=== PATIENT | female | born 2000 | race Caucasian/White ===

== ENCOUNTER 2022-12-12 14:07 | Outpatient (OUT) | payer OTHER, SELFPAY ==
[2022-12-12 14:18] LABS: Basophils Percent Auto 0.4 % (0.2-2.0); Eosinophils Absolute Auto 0.1 10^3/uL (0.0-0.7); Eosinophils Percent Auto 1.3 % (0.9-7.0); Hematocrit 39.5 % (36.0-48.0); Hemoglobin 12.1 g/dL (12.0-16.0); Immature Granulocytes Abs Auto 0.04 10^3/uL (0.00-0.03); Immature Granulocytes Pct Auto 0.4 % (0.0-0.5); Lymphocytes Absolute Auto 1.8 10^3/uL (1.2-3.8); Lymphocytes Percent Auto 19.6 % (20.5-60.0); Mean Corpuscular HGB Conc 30.6 g/dL (29.9-35.2); Mean Corpuscular Hemoglobin 22.9 pg (26.7-34.0); Mean Corpuscular Volume 74.8 fL (81.0-99.0); Mean Platelet Volume 11.6 fL (9.5-13.5); Monocytes Absolute Auto 0.6 10^3/uL (0.3-0.8); Monocytes Percent Auto 6.7 % (1.7-12.0); Neutrophils Absolute Auto 6.7 10^3/uL (1.4-6.5); Neutrophils Percent Auto 71.6 % (43.0-75.0); Platelet Count 344 10^3/uL (150-450); Red Blood Count 5.28 10^6/uL (4.20-5.40); Red Cell Distribution Width 17.5 % (11.0-15.0); White Blood Count 9.4 10^3/uL (4.0-11.0)
[2022-12-12 14:28] LABS: Estimated Average Glucose 111 mg/dL; Glycohemoglobin A1C 5.5 % (4.5-6.2)
[2022-12-12 14:47] LABS: Alanine Aminotransferase 29 U/L (14-59); Albumin Globulin Ratio 0.7; Albumin Level 3.3 g/dL (3.4-5.0); Alkaline Phosphatase 82 U/L (46-116); Anion Gap 12.9; Aspartate Amino Transferase 21 U/L (15-37); BUN Creatinine Ratio 13.6; Bilirubin Total 0.3 mg/dL (0.2-1.0); Calcium 9.2 mg/dL (8.5-10.1); Carbon Dioxide 27.5 mmol/L (21.0-32.0); Chloride 103 mmol/L (98-107); Chol HDL Ratio 4.5; Cholesterol 190 mg/dL (<=200); Estimated GFR (African America >60 (>=60); Estimated GFR (Non-African Ame >60 (>=60); Globulin 4.7 g/dL; Glucose 82 mg/dL (74-106); HDL Cholesterol 42 mg/dL (40-60); Potassium 4.4 mmol/L (3.5-5.1); Sodium 139 mmol/L (136-145); Thyroid Stimulating Hormone 1.452 uIU/mL (0.358-3.740); Triglycerides 198 mg/dL (<=150); VLDL CHOLESTEROL 39.6 mg/dL
== END 2022-12-12 14:08 | disposition home or self-care (01) ==
LOC: LAB 14:07
PROVIDERS: PCP Internal Medicine; Visit Provider Internal Medicine
DX: F31.9 Bipolar disorder, unspecified (principal); F41.1 Generalized anxiety disorder; F90.9 Attention-deficit hyperactivity disorder, unspecified type; Z13.1 Encounter for screening for diabetes mellitus; Z13.220 Encounter for screening for lipoid disorders
CPT/HCPCS: 36415; 80053; 80061; 83036; 84443; 85025

== ENCOUNTER 2023-01-08 19:47 | Outpatient (OUT) | payer OTHER, SELFPAY | END 2023-01-08 19:48 | disposition home or self-care (01) | LOC: SLEEP 19:47 | PROVIDERS: PCP Internal Medicine; Visit Provider Internal Medicine | DX: G47.33 Obstructive sleep apnea (adult) (pediatric) (principal) | CPT/HCPCS: 95810 ==

== ENCOUNTER 2023-02-12 19:59 | Outpatient (OUT) | payer OTHER, SELFPAY | END 2023-02-12 20:00 | disposition home or self-care (01) | LOC: SLEEP 19:59 | PROVIDERS: PCP Internal Medicine; Visit Provider Internal Medicine | DX: G47.33 Obstructive sleep apnea (adult) (pediatric) (principal) | CPT/HCPCS: 95811 ==

== ENCOUNTER 2023-02-19 18:11 | Emergency (ER) | payer OTHER, SELFPAY ==
[2023-02-19 18:15] VITALS: BP 124/91; PULSE 97; RESP 18; TEMP 36.5; O2SAT 99; BMI 42.5
--- NOTE | 2023-02-19 18:35 | ECG_ITS ---
[facility] Test Date: 2023-02-19 Pat Name: ISABELA ZHENG Department: Room: - Gender: Female [employer]: : 2000 Requested By: SHAIKH NITO Order Number: [id number] Reading MD: BRENT TERRELL Measurements Intervals [place] Rate: 112 P: 50 MI: 162 QRS: 61 QRSD: 76 T: 47 QT: 314 QTc: 380 Interpretive Statements 1120 Sinus tachycardia 9140 abnormal rhythm ECG No previous ECG available for comparison Electronically Signed On 02-20-2023 7:08:06 EST by BRENT TERRELL
--- NOTE | 2023-02-19 18:40 | XR_ITS ---
[facility] [place] [id number] Patient Name: ISABELA ZHENG MRN: [id number] date: 2000 Sex: F Assigned Patient Location: ED.MAIN Current Patient Location: ER Accession/Order Number: [id number] Exam Date: 02/19/2023 19:02 Report Date: 02/19/2023 19:47 At the request of: МАРИНА MOURA Procedure: XR chest 1V EXAM: XR chest 1V at 1903 hours HISTORY: Chest pain COMPARISON: 12/17/2019 TECHNIQUE: AP upright portable chest x-ray FINDINGS: The heart is not enlarged and the vasculature is not distended. No acute infiltrate, effusion or pneumothorax is identified. The osseous structures are grossly intact XR/XR chest 1V IMPRESSION: No acute infiltrate or evidence of cardiac decompensation. Given the differences in technique and projection, the overall appearance of the chest is essentially unchanged. Electronically authenticated by: GRISELDA LINDA Date: 02/19/2023 19:47
--- NOTE | 2023-02-19 18:40 | CT_ITS ---
[address] [address] Patient Name: ISABELA ZHENG MRN: [id number] date: 2000 Sex: F Assigned Patient Location: ER Current Patient Location: Accession/Order Number: [id number] Exam Date: 02/19/2023 19:02 Report Date: 02/19/2023 20:22 At the request of: МАРИНА MOURA Procedure: CT angio head EXAM: CT angio head, CT angio neck HISTORY: Dizziness and paresthesia. COMPARISON: Head CT on 02/19/2023 . TECHNIQUE: Following IV administration of iodinated contrast, axial CT scans of the head and neck were obtained. MPR and MIP images images were obtained. Carotid stenosis is based on NASCET criteria. Dose reduction techniques were achieved by using automated exposure control and/or adjustment of mA and/or kV according to patient size and/or use of iterative reconstruction technique. FINDINGS: CTA OF THE HEAD: No major branch occlusion or significant intracranial stenosis. No aneurysm. Dural venous sinuses are patent. CTA OF THE NECK: No abnormal soft tissue mass in the neck. The visualized lungs are clear. Osseous structures are intact. Aortic arch shows no aneurysm. The great vessels of the aortic arch show no significant stenosis. Vertebral arteries show no significant stenosis or dissection. Common carotids and internal carotids show no significant stenosis or dissection. CT/CT angio head IMPRESSION: Normal CTA of the head and neck. Patent dural venous sinuses. Electronically authenticated by: BAUDILIO AUGUSTINE Date: 02/19/2023 20:22
--- NOTE | 2023-02-19 18:40 | CT_ITS ---
[address] [address] Patient Name: ISABELA ZHENG MRN: [id number] date: 2000 Sex: F Assigned Patient Location: ER Current Patient Location: Accession/Order Number: [id number] Exam Date: 02/19/2023 19:02 Report Date: 02/19/2023 20:22 At the request of: МАРИНА MOURA Procedure: CT angio neck EXAM: CT angio head, CT angio neck HISTORY: Dizziness and paresthesia. COMPARISON: Head CT on 02/19/2023 . TECHNIQUE: Following IV administration of iodinated contrast, axial CT scans of the head and neck were obtained. MPR and MIP images images were obtained. Carotid stenosis is based on NASCET criteria. Dose reduction techniques were achieved by using automated exposure control and/or adjustment of mA and/or kV according to patient size and/or use of iterative reconstruction technique. FINDINGS: CTA OF THE HEAD: No major branch occlusion or significant intracranial stenosis. No aneurysm. Dural venous sinuses are patent. CTA OF THE NECK: No abnormal soft tissue mass in the neck. The visualized lungs are clear. Osseous structures are intact. Aortic arch shows no aneurysm. The great vessels of the aortic arch show no significant stenosis. Vertebral arteries show no significant stenosis or dissection. Common carotids and internal carotids show no significant stenosis or dissection. CT/CT angio neck IMPRESSION: Normal CTA of the head and neck. Patent dural venous sinuses. Electronically authenticated by: BAUDILIO AUGUSTINE Date: 02/19/2023 20:22
--- NOTE | 2023-02-19 18:41 | CT_ITS ---
[facility] [place] [id number] Patient Name: ISABELA ZHENG MRN: [id number] date: 2000 Sex: F Assigned Patient Location: ED.MAIN Current Patient Location: ER Accession/Order Number: [id number] Exam Date: 02/19/2023 19:02 Report Date: 02/19/2023 19:48 At the request of: МАРИНА MOURA Procedure: CT head/brain wo con EXAMINATION: CT head/brain wo con, 02/19/2023 7:02 PM EST HISTORY: Dizziness COMPARISON: None. TECHNIQUE: CT scan of the head was performed without IV contrast. CT dose reduction technique was used, including Automated Exposure Control. FINDINGS: BRAIN PARENCHYMA/CSF SPACES: Ventricles are normal in size for age. There is no hemorrhage, mass effect or midline shift. There are no other significant findings. PARANASAL SINUSES: Clear. SKULL BASE AND CALVARIUM: Normal. EXTRACRANIAL SOFT TISSUES: Normal. CT/CT head/brain wo con IMPRESSION: No acute intracranial findings. Electronically authenticated by: WILLAM SANDERS Date: 02/19/2023 19:48
--- NOTE | 2023-02-19 18:42 | ED.GENADUL1 ---
HPI - General Adult General Chief complaint: Dizziness Stated complaint: DIZZY LEFT SIDED WEAKNESS Time Seen by Provider: 02/19/23 18:18 Source: patient Mode of arrival: walk-in History of Present Illness HPI narrative: Patient is a 22-year-old female presents to the emergency department for the evaluation of dizziness, left-sided tingling. Patient states several hours ago she felt dizzy as though she was off balance. She states 2 hours later, she developed tingling on the left side of her body including the left side of her head and chest. She denies any significant headache, visual changes, fevers, vomiting. She is not concerned for . No medications taken prior to arrival. She has not had any visual changes or visual loss. She has no complaints of chest pain, shortness of breath or extremity swelling. Related Data Home Medications Medication Instructions Recorded Confirmed bupropion HCl 150 mg 24 hr tablet, mg PO 02/19/23 extended release norethindrone 1.5 mg-ethinyl tab 02/19/23 estradiol 30 mcg(21)/iron 75 mg(7) tablet (Peter Fe 1.5/30 (28)) quetiapine 100 mg tablet mg 02/19/23 venlafaxine 75 mg capsule,extended mg PO 02/19/23 release 24 hr Allergies Allergy/AdvReac Type Severity Reaction Status Date / Time No Known Drug Allergies Allergy Verified 02/19/23 18:21 Review of Systems ROS Constitutional Denies: fever or chills Eyes Denies: change in vision Ears, nose, mouth, and throat Denies: throat pain Cardiovascular Denies: chest pain Respiratory Denies: shortness of breath or cough Gastrointestinal Denies: nausea or vomiting Genitourinary Denies: painful urination Musculoskeletal Denies: back pain Integumentary/Breast Denies: rash Neurological Reports: numbness in extremities and dizziness; Denies: headache Psychiatric Denies: anxiety Endocrine Denies: excessive urination Exam Narrative Exam Narrative: Gen.: Awake, alert, in no distress Head: Normocephalic, atraumatic ENT: Moist mucous membranes, bilateral TMs clear Respiratory: No respiratory distress, lungs clear bilaterally Cardio: Regular rate and rhythm Gastrointestinal: Abdomen is soft, nondistended and nontender to palpation Extremities: Moves extremities equally Psych: Normal mood and affect Neuro: No focal neuro deficit Skin: Warm, dry, intact Constitutional Vital Signs, click to edit/add: Last Vital Signs Temp 97.7 F 02/19/23 18:15 Pulse 102 H 02/19/23 19:51 Resp 20 02/19/23 19:51 BP 125/82 02/19/23 19:51 Pulse Ox 100 02/19/23 19:51 O2 Del Method Room Air 02/19/23 18:15 Course Vital Signs Vital signs: Vital Signs Temperature 97.7 F 02/19/23 18:15 Pulse Rate 97 H 02/19/23 18:15 Respiratory Rate 18 02/19/23 18:15 Blood Pressure 124/91 02/19/23 18:15 Pulse Oximetry 99 02/19/23 18:15 Oxygen Delivery Method Room Air 02/19/23 18:15 Temperature 97.7 F 02/19/23 18:15 Pulse Rate 102 H 02/19/23 19:51 Respiratory Rate 20 02/19/23 19:51 Blood Pressure 125/82 02/19/23 19:51 Pulse Oximetry 100 02/19/23 19:51 Oxygen Delivery Method Room Air 02/19/23 18:15 Medical Decision Making MDM Narrative Medical decision making narrative: With no focal neurodeficits in the ER, stable vital signs. Labs, EKG, chest x-ray, CT of the brain and CT angio of the head and neck were obtained for the patient, these were reviewed by the radiologist with no evidence of acute process. No evidence of stroke findings. Patient will be discharged home with instructions to increase fluids. Return to the ER if symptoms change or worsen. Medical Records Medical records reviewed: Yes I reviewed the patient's medical records Lab Data Lab results reviewed: Yes I reviewed the patient's lab results Labs: Lab Results 02/19/23 02/19/23 Range/Units 18:30 19:00 WBC 9.9 (4.0-11.0) 10^3/uL RBC 5.08 (4.20-5.40) 10^6/uL Hgb 12.0 (12.0-16.0) g/dL Hct 39.2 (36.0-48.0) % MCV 77.2 L (81.0-99.0) fL MCH 23.6 L (26.7-34.0) pg MCHC 30.6 (29.9-35.2) g/dL RDW 15.2 H (11.0-15.0) % Plt Count 327 (150-450) 10^3/uL MPV 11.1 (9.5-13.5) fL Neut % (Auto) 87.3 H (43.0-75.0) % Lymph % (Auto) 8.2 L (20.5-60.0) % [place] % (Auto) 3.6 (1.7-12.0) % Eos % (Auto) 0.6 L (0.9-7.0) % Baso % (Auto) 0.1 L (0.2-2.0) % Neut # (Auto) 8.6 H (1.4-6.5) 10^3/uL Lymph # (Auto) 0.8 L (1.2-3.8) 10^3/uL [place] # (Auto) 0.4 (0.3-0.8) 10^3/uL Eos # (Auto) 0.1 (0.0-0.7) 10^3/uL Baso # (Auto) 0.0 (0.0-0.1) 10^3/uL Abs Immat Gran (auto) 0.02 (0.00-0.03) 10^3/uL Imm/Tot Granulo (auto) 0.2 (0.0-0.5) % Sodium 136 (136-145) mmol/L Potassium 3.8 (3.5-5.1) mmol/L Chloride 101 (98-107) mmol/L Carbon Dioxide 26.1 (21.0-32.0) mmol/L Anion Gap 12.7 BUN 7.0 (7.0-18.0) mg/dL Creatinine 0.87 (0.55-1.02) mg/dL Est GFR ( Amer) >60 (>=60) Est GFR (Non-Af Amer) >60 (>=60) BUN/Creatinine Ratio 8.0 Glucose 82 (74-106) mg/dL Calcium 8.4 L (8.5-10.1) mg/dL Magnesium 1.8 (1.8-2.4) mg/dL Total Bilirubin 0.3 (0.2-1.0) mg/dL AST 16 (15-37) U/L ALT 26 (14-59) U/L Alkaline Phosphatase 75 (46-116) U/L Troponin I High Sens 5.5 (4.0-51.3) pg/mL Total Protein 8.0 (6.4-8.2) g/dL Albumin 3.2 L (3.4-5.0) g/dL Globulin 4.8 g/dL Albumin/Globulin Ratio 0.7 TSH 1.465 (0.358-3.740) uIU/mL Serum HCG, Qual Negative (NEGATIVE) Urine Color Yellow (YELLOW) Urine Clarity Clear (CLEAR) Urine pH 5.5 (5.0-9.0) Ur Specific [place] >=1.030 A (1.005-1.025) Urine Protein Negative (NEG/TRACE) mg/dL Urine Glucose (UA) Negative (NEGATIVE) mg/dL Urine Ketones Negative (NEGATIVE) mg/dL Urine Occult Blood Negative (NEGATIVE) Urine Nitrite Negative (NEGATIVE) Urine Bilirubin Negative (NEGATIVE) Urine Urobilinogen 0.2 (0.2-1.0) EU/dL Ur Leukocyte Esterase Negative (NEGATIVE) Imaging Data Chest x-ray: Attestation: I have reviewed the pertinent imaging results. CT scan - head: Attestation: I have reviewed the pertinent imaging results. Radiologist's impression: Procedure: CT head/brain wo con EXAMINATION: CT head/brain wo con, 02/19/2023 7:02 PM EST HISTORY: Dizziness COMPARISON: None. TECHNIQUE: CT scan of the head was performed without IV contrast. CT dose reduction technique was used, including Automated Exposure Control. FINDINGS: BRAIN PARENCHYMA/CSF SPACES: Ventricles are normal in size for age. There is no hemorrhage, mass effect or midline shift. There are no other significant findings. PARANASAL SINUSES: Clear. SKULL BASE AND CALVARIUM: Normal. EXTRACRANIAL SOFT TISSUES: Normal. IMPRESSION: No acute intracranial findings. Electronically authenticated by: WILLAM SANDERS Date: 02/19/2023 19:48 ECG Data Attestation: I personally reviewed and interpreted this ECG as follows: (Sinus tachycardia at a rate of 112, no acute ST elevation or ectopy. EKG reviewed by attending physician) Discharge Plan Discharge Chief Complaint: Dizziness Clinical Impression: Dizziness Patient Disposition: Home, Self-Care Time of Disposition Decision: 20:44 Condition: Good Prescriptions / Home Meds: No Action venlafaxine 75 mg capsule,extended release 24hr PO norethindrone-e.estradiol-iron [Peter Fe 1.5/30 (28)] 1.5 mg-30 mcg (21)/75 mg (7) tablet quetiapine 100 mg tablet bupropion HCl 150 mg tablet extended release 24 hr PO Instructions: Dizziness (ED) Stand Alone Forms: Portal Instructions Referrals: Shaikh Jimenez MD [Primary Care Provider] - 1 week Discharge Date/Time: 02/19/23 20:58
[2023-02-19 18:52] LABS: Basophils Percent Auto 0.1 % (0.2-2.0); Eosinophils Absolute Auto 0.1 10^3/uL (0.0-0.7); Eosinophils Percent Auto 0.6 % (0.9-7.0); Hematocrit 39.2 % (36.0-48.0); Immature Granulocytes Abs Auto 0.02 10^3/uL (0.00-0.03); Immature Granulocytes Pct Auto 0.2 % (0.0-0.5); Lymphocytes Absolute Auto 0.8 10^3/uL (1.2-3.8); Lymphocytes Percent Auto 8.2 % (20.5-60.0); Mean Corpuscular HGB Conc 30.6 g/dL (29.9-35.2); Mean Corpuscular Hemoglobin 23.6 pg (26.7-34.0); Mean Corpuscular Volume 77.2 fL (81.0-99.0); Mean Platelet Volume 11.1 fL (9.5-13.5); Monocytes Absolute Auto 0.4 10^3/uL (0.3-0.8); Monocytes Percent Auto 3.6 % (1.7-12.0); Neutrophils Absolute Auto 8.6 10^3/uL (1.4-6.5); Neutrophils Percent Auto 87.3 % (43.0-75.0); Platelet Count 327 10^3/uL (150-450); Red Blood Count 5.08 10^6/uL (4.20-5.40); Red Cell Distribution Width 15.2 % (11.0-15.0); White Blood Count 9.9 10^3/uL (4.0-11.0)
[2023-02-19 18:58] LABS: HCG Qualitative NEGATIVE (NEGATIVE)
[2023-02-19] MEDS: 0.9 % SODIUM CHLORIDE 1,000 ML 999 ML IV (18:59)
[2023-02-19 19:09] LABS: Bilirubin Urine NEGATIVE (NEGATIVE); Blood Urine NEGATIVE (NEGATIVE); Clarity Urine CLEAR (CLEAR); Color Urine YELLOW (YELLOW); Glucose Urine UA NEGATIVE (NEGATIVE); Ketones Urine NEGATIVE (NEGATIVE); Leukocyte Esterase Urine NEGATIVE (NEGATIVE); Nitrite Urine NEGATIVE (NEGATIVE); Protein Urine NEGATIVE (NEG/TRACE); Specific Gravity Urine >=1.030 (1.005-1.025); Urobilinogen Urine 0.2 EU/dL (0.2-1.0); pH Urine 5.5 (5.0-9.0)
[2023-02-19 19:11] LABS: Urine Microscopic Indicated NO
[2023-02-19 19:12] LABS: Alanine Aminotransferase 26 U/L (14-59); Albumin Globulin Ratio 0.7; Albumin Level 3.2 g/dL (3.4-5.0); Alkaline Phosphatase 75 U/L (46-116); Anion Gap 12.7; Aspartate Amino Transferase 16 U/L (15-37); Bilirubin Total 0.3 mg/dL (0.2-1.0); Calcium 8.4 mg/dL (8.5-10.1); Carbon Dioxide 26.1 mmol/L (21.0-32.0); Chloride 101 mmol/L (98-107); Estimated GFR (African America >60 (>=60); Estimated GFR (Non-African Ame >60 (>=60); Globulin 4.8 g/dL; Glucose 82 mg/dL (74-106); Magnesium 1.8 mg/dL (1.8-2.4); Potassium 3.8 mmol/L (3.5-5.1); Sodium 136 mmol/L (136-145); Thyroid Stimulating Hormone 1.465 uIU/mL (0.358-3.740); Troponin I High Sensitivity 5.5 pg/mL (4.0-51.3)
[2023-02-19 19:51] VITALS: BP 125/82; PULSE 102; RESP 20; O2SAT 100
== END 2023-02-19 20:58 | disposition home or self-care (01) ==
PROVIDERS: Physician Assistant; Emergency Provider Internal Medicine; PCP Internal Medicine
DX: R42 Dizziness and giddiness (principal)
CPT/HCPCS: 36415; 70450; 70496; 70498; 71045; 80053; 81003; 83735; 84443; 84484; 84703; 85025; 93005; 96360; 99285; Q9967

== ENCOUNTER 2024-04-23 13:28 | Outpatient (OUT) | payer OTHER, SELFPAY ==
[2024-04-23 14:59] LABS: Percent Iron Saturation 10.1 %
[2024-04-24 03:11] LABS: Vitamin B12 917 pg/mL (232-1245)
[2024-04-24 05:11] LABS: Transferrin 308 mg/dL (192-364)
== END 2024-04-23 13:29 | disposition home or self-care (01) ==
LOC: LAB 13:31
DX: D64.9 Anemia, unspecified (principal)
CPT/HCPCS: 36415; 82607; 82728; 82746; 83540; 83550; 84466